=== PATIENT | female | born 1960 | race Caucasian/White ===

== ENCOUNTER 2017-03-08 10:08 | Emergency (ER) | payer BC ==
[~2017-03-08 10:08] MED LIST: ALPRAZOLAM ER1 MG PO; AMITRIPTYLINE H25 MG PO; AMLODIPINE BESYL5 MG PO; ARTHROTEC 751 TAB.E2 PO; BLACK COHOSH200 MG PO; CALCIUM 1,2001 EACH PO; CIPRO PO; CLARITIN10 M1 PO; FERRO-TIME325 MG PO; FLAGYL PO; FLAGYL250 M1 PO; GABAPENTIN400 M2 PO; GINKGO BILOBA60 M1 PO; GLUCOSAMINE S1000 M1 PO; KEFLEX250 M2 PO; MIRALAX255 GM PO; MSM500 MG PO; MULTI-DAY VITAM1 TAB PO; NAPROXEN SODIU550 MG PO; OXYCONTIN 20MG20 M1 PO; PANTOPRAZOLE SO40 MG PO; PERCOCET 7.5-31 EACH PO; PHENERGAN25 M1 PO; PRAZOSIN HCL2 MG PO; PREVACID15 MG PO; SYNTHROID0.05 MG PO; TOPIRAMATE100 MG PO; TRAZODONE PO; URISPAS100 M1 PO; VIBRAMYCIN100 M1 PO; VITAMIN D3 5,01 EACH PO; VOLTAREN50 MG PO
== END 2017-03-08 10:59 | disposition home or self-care (01) ==
LOC: SED 10:08
DX: S61.215A Laceration without foreign body of left ring finger without damage to nail, initial encounter (principal); K21.9 Gastro-esophageal reflux disease without esophagitis; M19.90 Unspecified osteoarthritis, unspecified site; F17.200 Nicotine dependence, unspecified, uncomplicated; W26.2XXA Contact with edge of stiff paper, initial encounter; Y92.009 Unspecified place in unspecified non-institutional (private) residence as the place of occurrence of the external cause; Z23 Encounter for immunization
CPT/HCPCS: 12001; 90471; 90715; 99284